=== PATIENT | male | born 1970 | race Caucasian/White ===

== ENCOUNTER 2019-06-05 07:59 | Inpatient (IN) | payer OTHER, SELFPAY ==
[2019-06-05] VITALS (10 sets, daily range): BP systolic 101–119; BP diastolic 59–71; PULSE 60–104; RESP 16–19; TEMP 36–36.9; O2SAT 93–100; BMI 29.2
--- NOTE | 2019-06-05 08:13 | RAD_ITS ---
STUDY: X-RAY CHEST REASON FOR EXAM: Male, 49 years old. RASH ALL OVER SKIN, HEADACHE TECHNIQUE: Single AP portable view of the chest. COMPARISON: None. FINDINGS: The lungs are clear and expanded. There is no demonstrated pleural abnormality. Normal size heart. Normal mediastinum and mary kate. Normal visualized pulmonary arteries. Normal visualized aortic arch and descending thoracic aorta. Normal visualized thoracic spine. Normal visualized ribs, clavicles, and shoulders. There is no demonstrated abnormality of the visualized soft tissue structures of the upper abdomen. RAD/Chest 1 View (Portable) IMPRESSION: Normal x-ray examination of the chest. Electronically Signed: Philip Carrion MD at 8:46 EST , Service support ,
--- NOTE | 2019-06-05 08:13 | CT_ITS ---
STUDY: CT BRAIN WITHOUT CONTRAST REASON FOR EXAM: Male, 49 years old. HEADACHE, ALLERGIC REACTION RADIATION DOSAGE (If Supplied By Facility): CTDIvol = ( 44.99 ) mGy, DLP = ( 880.47 ) mGycm TECHNIQUE: Transaxial CT imaging of the brain was performed without administration of intravenous contrast material. Individualized dose optimization techniques were used for this CT. COMPARISON: No relevant priors. FINDINGS: Normal soft tissue structures. Normal calvarium. Normal size ventricles and extra-axial spaces for the patient''s age. Normal white matter tracts of the cerebral hemispheres. Normal basal ganglia and thalami. Normal brainstem. Normal cerebellum. There is no intracranial hemorrhage. There are no findings of an acute ischemic infarction. Normal visualized paranasal sinuses. CT/Brain/Head without Contrast IMPRESSION: Normal unenhanced CT scan of the brain. Electronically Signed: Philip Carrion MD at 9:09 EST , Service support ,
[2019-06-05] MEDS: 0.9% Normal Saline 1,000 ML 1000 ML IV (08:37)
[2019-06-05] MEDS: Morphine 4 MG/ML Syringe IV (08:37)
[2019-06-05] MEDS: Ondansetron 4 MG/2 ML Vial IV (08:37)
[2019-06-05 08:51] LABS: Absolute Lymphocyte Count 0.39 X10^3/uL (0.83-4.51); Absolute Neutrophil Count 21.3 X10^3/uL (2.0-7.7); Basophil% 0.4 % (0-1); Eosinophil# 0.04 X10^3/uL; Eosinophils% 0.2 % (0-5); Hematocrit 40.9 % (40-54); Hemoglobin 14.3 g/dL (13.0-16.5); Lymphocyte # 0.39 X10^3/ul (4.0); Lymphocyte % 1.7 % (19-41); Mean Corpuscular Hgb 32.8 pg (27.0-32.0); Mean Corpuscular Volume 93.8 fL (80-94); Mean Platelet Vol. 9.9 fl (6.2-12.0); Monocyte# 0.65 X10^3/uL; Monocyte% 2.8 % (0-10); NRBC Flagged by Analyzer 0.1 % (0-5); Neutrophil # 21.27 X10^3/uL (2.7-7.7); Neutrophil % 91.1 % (47-70); POSITIVE DIFFERENTIAL YES; Platelet Count 283 K/mm3 (150-450); RBC Distribution Width CV 12.9 % (11.6-14.6); RBC Distribution Width SD 44.3 fl (35.1-43.9); Red Blood Count 4.36 M/mm3 (4.6-6.2); White Blood Count 23.3 K/mm3 (4.4-11.0)
[2019-06-05 08:53] LABS: Differential Indicated SCAN CRITERIA MET
[2019-06-05 09:00] LABS: ALB/GLOB Ratio 0.7 RATIO (0.9-2.4); AST(SGOT) 159 U/L (15-37); Alanine Aminotransfer ALT/SGPT 151 U/L (16-61); Albumin, Serum 2.9 g/dL (3.2-5.0); Alkaline Phosphatase 180 U/L (45-117); Anion Gap 7 (5-15); BUN 20 mg/dL (7-18); BUN/Creat Ratio 17.1 RATIO (10-20); Calcium,Total 8.9 mg/dL (8.5-10.1); Chloride 98 mmol/L (98-107); Creatinine, Serum 1.17 mg/dL (0.70-1.30); EST Glomerular Filtration Rate 70 mL/min (>60); Est Glom Filt Rate - Afr Amer 85 mL/min (>60); Estimated Creatinine Clearance 80.45 ml/min; Globulin 4.2 g/dL (2.2-4.2); Glucose 142 mg/dL (74-106); Lipase 168 U/L (73-393); Protein, Total 7.1 g/dL (6.4-8.2); Sodium Level 133 mmol/L (136-145)
[2019-06-05 09:06] LABS: Lactic Acid 1.6 mmol/L (0.4-1.9)
[2019-06-05] MEDS: HYDROmorphone 1 MG/ML Syringe IV (09:24)
[2019-06-05] MEDS: Ketorolac 15 MG/ML Vial IV (09:25)
--- NOTE | 2019-06-05 09:27 | HP.PCM_ITS ---
History of Present Illness Date of Admission: 06/05/19 Chief Complaint: fever, rash The patient is a 49 year old M with a past medical history of invasive metastatic melanoma recently diagnosed and hypertension. He was admitted through the ED on 06/05/2019 with a complaint of fever, headache and a diffuse rash. Patient was diagnosed with invasive melanoma in May 2016 after he presented with a lesion on his left calf. He had a wide excision and sentinel lymph node biopsy in June 2016. 1 sentinel lymph node was negative for malignancy them and surgical margins were negative. In April 2019, patient presented with chest nodule and had biopsy via bronchoscopy which was positive for metastatic melanoma. He had a PET scan for staging of melanoma which showed multiple intrathoracic, hepatic, pancreatic and mesenteric metastasis along with multiple soft tissue musculoskeletal lesions consistent with malignancy. He was started on immunotherapy treatment for melanoma on May 28 and was started on ipilimumab and nivolumab. He had complained of swelling and pain in his chest and due to suspicion for infection, he was started on Bactrim last week. 2 days after he received immunotherapy and was on Bactrim, he started having diarrhea and then developed a diffuse rash and fever. This was thought to be due to Bactrim and so Bactrim was stopped and he was started on prednisone taper. Patient states that yesterday, he accidentally took 2 tablets of Bactrim and subsequently developed a severe ache, fever and chills as well as a diffuse erythematous rash. He thought this was due to the Bactrim so he decided to come into the ED today. Of note, patient states he had an MRI of the brain on account of the headaches and he was informed by his oncologist last night that he had metastasis to the brain as well. In addition in the ED, he was afebrile and vitals were stable. He was saturating at 94% on room air. Labs showed sodium of 133, with bilirubin of 2.4, AST/ALT of 159/151 and ALP of 180 and wbc of 23.3; neutrophils were 91.1% and eosinophils only 0.2%. Brain CT showed normal unenhanced CT of the brain chest x-ray was also normal. He is admitted to be managed for diffuse rash and transaminitis likely due to ipilimumab toxicity/sepsis with unclear source of infection. [] Past Medical History Past Medical History (Chronic Problems): Chronic Problems Malignant melanoma (Chronic) Allergies sulfamethoxazole [From Bactrim] Allergy (Verified 06/05/19 08:00) Rash trimethoprim [From Bactrim] Allergy (Verified 06/05/19 08:00) Rash Home Medications: Ambulatory Orders Medication Instructions Recorded Lisinopril [Zestril] 20 mg PO DAILY 08/20/16 Amox/Clavulanate Tablet [Augmentin 1 tab PO BID 06/05/19 Tablet] Citalopram [Celexa] 20 mg PO DAILY 06/05/19 Lorazepam 1 mg PO QHS PRN 06/05/19 Opdivo IV 06/05/19 Prednisone 20 mg PO UD 06/05/19 Yervoy IV 06/05/19 Lives: Spouse/ Significant Other Smoking Status: Former smoker Alcohol: None Drugs: None - *Family History Maternal History Items: No pertinent history Paternal History Items: No pertinent history Review of Systems Constitutional: Reports: Chills, Fever, Malaise, Weakness, Fatigue. Denies: Anorexia Eyes: Denies: Blurred vision HEENT: Denies: Head Aches, Sinus Congestion, Sinus Drainage Cardiovascular: Denies: Chest Pain, Palpitations Respiratory: Denies: Cough, Shortness of Breath, Shortness of breath at rest, Shortness of breath upon exertion, Sputum production Gastrointestinal: Reports: Diarrhea. Denies: Abdominal Pain, Nausea, Vomiting Genitourinary: Denies: Dysuria Musculoskeletal: Denies: Joint Pain, Joint Tenderness Skin: Reports: Rash, Skin Changes. Denies: Dryness, Jaundice, Lesions, Pruritis, Wounds Neurological: Denies: Numbness, Tingling, Focal weakness Psychiatric: Denies: Anxiety, Depression, Homicidal Ideations, Suicidal Ideations Hematologic/ Lymphatic: Denies: Easy Bruising, Easy Bleeding VTE Information - Inpt Only VTE Present on Admission: No VTE Pharm Prophylaxis ordered?: Yes Patient Problems: Active and Suspected Problems Fever (Acute) possible drug-induced vs. infection Head ache (Acute) history of migraine 15 years ago Brain metastases (Acute) Drug rash (Acute) Bactrim versus immunotherapy related Abnormal liver function tests (Acute) Liver metastasis vs immunotherapy related - Physical Exam Vitals/I&O's: Vital Signs Temp Pulse Resp BP Pulse Ox 98.3 F 104 H 19 H 119/71 93 06/05/19 08:00 06/05/19 08:00 06/05/19 08:00 06/05/19 08:00 06/05/19 08:00 Oxygen Delivery Method Room Air Weight: 210 lb Body Mass Index (BMI) 29.2 General: Alert, Oriented x3, Cooperative, No apparent distress, Lethargic HEENT: Atraumatic, PERRLA, EOMI, Normocephalic, - - tinge of jaundice per sclera Oral: Dry Mucosa Neck: Supple, No JVD, Negative Carotid Bruits, Negative Hepatojugular Reflux, No Nodes Lungs: Clear to auscultation, Normal air movement, No rhonchi, No wheeze Cardiovascular: Regular rate, Regular Rhythm, Normal S1, Normal S2, No murmurs Abdomen: Bowel Sounds Present, Soft, Non Tender, Non-Distended, No Hepato- splenomegaly Extremities: No clubbing, No cyanosis, No edema, Capillary Refill Less than 3 Seconds Skin: - - diffuse, erythematous, papular rash all over body; face and neck is very erythematous; no pruritus. Musculoskeletal: No Tenderness to Palpation of Joints or Extremities Lymphatic: No Cervical, Supraclavicular, or Inguinal Adenopathy Neurological: Cranial nerves II-XII grossly intact Psych/Mental Status: Normal Affect, Appropriate, Alert and oriented to time, place, person, mood and affect Microbiology Past 72 Hours 06/05/19 08:33 Mucosa - Nasopharyngeal Influenza Types A,B Direct FA (DEYSI) - Final Laboratory Results 06/05/19 08:25: WBC 23.3 H, RBC 4.36 L, Hgb 14.3, Hct 40.9, MCV 93.8, MCH 32.8 H , MCHC 35.0, RDW Std Deviation 44.3 H, RDW Coeff of Tom 12.9, Plt Count 283, MPV 9.9, Immature Gran % (Auto) 3.800 H, Neut % (Auto) 91.1 H, Lymph % (Auto) 1.7 L , [place] % (Auto) 2.8, Eos % (Auto) 0.2, Baso % (Auto) 0.4, Absolute Neuts (auto) 21.3 H, Absolute Lymphs (auto) 0.39 L, Nucleated RBC % 0.1 06/05/19 08:25: Sodium 133 L, Potassium 4.0, Chloride 98, Carbon Dioxide 28.0, Anion Gap 7, BUN 20 H, Creatinine 1.17, Estim Creat Clear Calc 80.45, Est GFR (MDRD) Af Amer 85, Est GFR (MDRD) Non-Af 70, BUN/Creatinine Ratio 17.1, Glucose 142 H, Calcium 8.9, Total Bilirubin 2.40 H, AST 159 H, ALT 151 H, Alkaline Phosphatase 180 H, Total Protein 7.1, Albumin 2.9 L, Globulin 4.2, Albumin/Globulin Ratio 0.7 L, Lipase 168 06/05/19 08:25: Lactic Acid 1.[address] 06/05/19 08:13 IMPRESSION: Normal unenhanced CT scan of the brain. Electronically Signed: Philip Carrion MD at 9:09 EST , Service support , Chest X-Ray 06/05/19 08:13 IMPRESSION: Normal x-ray examination of the chest. Electronically Signed: Philip Carrion MD at 8:46 EST , Service support , Assessment/Plan All Active Problems Fever (Acute) Head ache (Acute) Brain metastases (Acute) Drug rash (Acute) Abnormal liver function tests (Acute) 49 y/o admitted with a complaint of fever, headache and rash. 1. Diffuse erythematous rash, due to probable ipilimumab toxicity * Patient has been receiving chemotherapy with ipilimumab for invasive metastatic melanoma. * His symptoms can all be explained by ipilimumab toxicity such as the rash, elevated liver enzymes and the diarrhea and vomiting he has had. * Family thinks that this may be due to Bactrim as he had a similar reaction to Bactrim a few days back but he was on chemotherapy at that time too. He was placed on prednisone taper. * Will hydrate with IV fluids. Start IV Solu-Medrol 40 mg every 8 hours. Per review of literature, family member toxicity, patient needs 0.5 to 1 mg/kg of prednisone daily so the current dosage fits within that. * Tylenol for pain. Will monitor closely. * I discussed case with Dr. Valentine she was patient's primary oncologist. Also discussed with Dr. Lainez who is covering for Dr. Crawford. * 2. Sepsis * Patient was tachycardic on admission and WBC is also elevated at 23. SIRS criteria is therefore 2/3. * leucocytosis could be due to steroids that he had been taking recently but in light of patient's immunosuppression, will manage for sepsis until ruled otherwise. * UA was positive for bacteria +1 both otherwise normal. Blood cultures and urine cultures ordered. * start patient on IV vancomycin and Zosyn. * * 3. Severe headache likely due to exacerbation of cluster headache * Patient had an MRI was informed yesterday by his oncologist that he had brain metastasis. Per my discussion with Dr. Pineda and Dr. Santana, he had a tiny foci of mental status and this is likely not the cause of his headache. * CT of the brain done during this admission was negative. Of note, patient now says he has a history of cluster headaches with the headaches were similar to this and he has assisted photophobia and blurring of vision. * Will under present of oxygen at 6 to 12 L/min via nonrebreather mask to help with cluster headache. Give sumatriptan and IV Toradol. Patient also on IV Solu-Medrol. * 4. Transaminitis * liver enzymes are elevated; Total bilirubin is 2.4, AST/ALT of 159/151 and ALP of 180. No previous records available in system. * Per discussion with Dr. Crawford, previous liver enzymes are WNL. * this is likely due to the immunomodulators he is receiving for chemotherapy namely ipilimumab. * lipase was not elevated at 168, so therefore unlikely to be pancreatitis * patient currently being hydrated and on IV solumedrol * will trend liver enzymes * liver USG done; report pending. * 5. Hypertension: on lisinopril. 6. Depression: On Celexa Prophylaxis: Lovenox Code status: DNRCCA * Patient counseled extensively about different types of CODE STATUS including full code, DNR CCA and DNR CCA. Patient elects to be full code. Total [id number] time 17 minutes. Code Visit Inpatient E&M: 09417 Init Hosp L3 Procedures: 68833 Advncd Care Plan 30 Min
--- NOTE | 2019-06-05 09:29 | ED.VISSUMM ---
- ER Visit Summary Date of Service: 06/05/19 Chief Complaint: [Rash, headache, fever] History of Present Illness: The patient is a 49 M [presents to the emergency department with symptoms that started last evening. Patient states that he accidentally took 2 Bactrim tablets last evening accidentally. Patient a week ago found out that he was allergic to Bactrim that he was being treated for an infection to a biopsy site in his right chest. Patient subsequently was switched over to Augmentin. Patient a week ago developed a fever and headache and rash similar to the symptoms of presentation today. Last evening patient developed a severe headache around midnight followed by vomiting that started around 1 AM. He is vomited multiple times. He denies any diarrhea. He denies urinary symptoms. He denies cough. Patient did have a temp up to 103 at home per his . Patient rates his headache a 10 out of 10. Patient currently being treated for melanoma that has metastasized to the liver, lungs, pancreas, and brain. Patient had an MRI of the brain last evening and was told he had metastasis to the brain. Patient currently being treated with biologicals by his oncologist Dr. Rinku Crawford. Patient denies any sick contacts. He is not receiving any type of chemotherapy. Patient does complain of photophobia with the headache. No history of migraines.] Physical Examination: [HEENT-PERRLA, EOMI. Cranial nerves II through XII grossly intact. TMs clear. Mucous membranes moist. No adenopathy. Cardiovascular-regular rate and rhythm without murmur or ectopy Lungs-clear to auscultation, chest wall stable without crepitus or subcu emphysema Abdomen-normoactive bowel sounds, soft, nontender, no rebound or rigidity, no peritoneal signs. Neuro [id number]-nose and heel farah testing within normal limits, negative Romberg, negative No fundi benign. Extremities-intact ?4, normal range of motion, normal pulses, atraumatic] Test Results: [CT scan of the brain without contrast was normal. Chest x-ray was unremarkable. CBC with differential obtained showed an elevated white blood cell count of 23,000, hemoglobin 14, hematocrit 41, platelets 283. Chemistries unremarkable. LFTs did show elevation in total bilirubin of 2.4, alk phos 180, ALT 156, AST 459. Lipase was 168. Influenza screen was negative. Lactate was 1.6.] Emergency Department Course and Treatment: [ IV established. Patient was given a liter normal same fluid bolus. Patient was medicated 4 mg of morphine and 4 mg of Zofran which he had minimal improvement of his headache with.] Patient was remedicated with Toradol 15 mg IV and Dilaudid 1 mg IV. Treatment Plan: [This was discussed with hospitalist who will evaluate patient for admission. Blood cultures were sent. Urinalysis results pending.] Disposition: [Admit] Impression: [Allergic drug reaction Intractable headache Fever-etiology uncertain] This note was generated with [employer] dictation software. It may contain incorrect words, spelling, and punctuation that were not noted in review of the chart prior to signing ED Disposition - Plan for ED Patient: Referrals: Wilfredo Ellis MD [Primary Care Provider] -
[2019-06-05 09:33] LABS: Differential Comment SCANNED
[2019-06-05 09:33] LABS: Mucous, Urine 0 SEEN /hpf (<or=2+); Red Blood Cells-Urine 0 SEEN /hpf (0-5); Squamous Epithelial Cells - UA 0 SEEN /hpf (0-5); White Blood Cells 0 SEEN /hpf (0-5)
[2019-06-05 09:53] LABS: Color, Urine Yellow (Yellow); Glucose, Dipstick Normal (Normal); Ketone-Dipstick 5 mg/dl (Negative); Leukocyte Esterase-Dipstick 25 /ul (Negative); Nitrite-Dipstick Positive (Negative); Occult Blood-Urine 10 /ul (Negative); Protein-Dipstick 30 mg/dl (Negative); Specific Gravity, Urine 1.015 (1.002-1.030); Urine Clarity Clear (Clear); Urine Urobilinogen 4 mg/dl (Normal)
[2019-06-05 09:54] LABS: Urine Bilirubin Dipstick 1 mg/dL (Negative)
[2019-06-05 09:57] LABS: Bacteria 1+ /hpf (None Seen)
--- NOTE | 2019-06-05 11:08 | US_ITS ---
STUDY: ABDOMINAL ULTRASOUND - RIGHT UPPER QUADRANT REASON FOR VISIT: Male, 49 years old JAUNDICE, PANCREATIC METS, ABD PAIN TECHNIQUE: Ultrasound evaluation of the right upper quadrant was performed with real-time and static hendrickson-scale imaging. TECHNICAL QUALITY: Adequate. COMPARISON: None. FINDINGS: Liver: The liver measures 15.3 cm. There is a heterogeneous echogenicity of the liver. The bile ducts are within normal limits. There is hepatic color flow. The direction of portal flow is hepatopetal. There is no demonstrated mass lesion, two simple cysts, larger measures 2.2 x 1.7 x 2.1 cm Gallbladder: Normal distended gallbladder. The gallbladder wall measures 2 mm. There is a negative sonographic Ingram''s sign. There is no pericholecystic fluid. There are gallbladder polyps. There is ring down artifact in the anterior wall of the gallbladder suggestive of adenomyomatosis Common Bile Duct (C.B.D.): The common bile duct measures 5 mm. Pancreas: The visualized pancreas is sonographically normal Right Kidney: Normal size of the right kidney. The right kidney measures 10.6 x 7.3 x 6.5 cm. Normal renal cortex. The right cortex measures 2.2 cm. There is no demonstrated renal mass or cyst. There is no right hydronephrosis. US/Liver IMPRESSION: Heterogeneous echotexture within the liver, there are 2 hepatic cysts, no suspicious solid lesion Gallbladder polyp and ring down artifact from the anterior wall of the gallbladder suggestive of adenomyomatosis. No sonographic evidence of cholecystitis Electronically Signed: Philip Carrion MD at 16:44 EST , Service support ,
--- NOTE | 2019-06-05 11:16 | PCM.CONS.GEN ---
Problem List (1) Fever Status: Acute Qualifiers: Fever type: unspecified Qualified Code(s): R50.9 - Fever, unspecified Comment: possible drug-induced vs. infection (2) Head ache Status: Acute Qualifiers: Headache type: cluster Headache chronicity pattern: episodic headache Intractability: intractable Qualified Code(s): G44.011 - Episodic cluster headache, intractable Comment: history of migraine 15 years ago (3) Malignant melanoma Status: Chronic Qualifiers: Melanoma location: unspecified site Qualified Code(s): C43.9 - Malignant melanoma of skin, unspecified (4) Brain metastases Status: Acute (5) Drug rash Status: Acute Comment: Bactrim versus immunotherapy related (6) Abnormal liver function tests Status: Acute Comment: Liver metastasis vs immunotherapy related Reason for Consult Date of Consultation: 06/05/19 Reason for Consultation: Fever and rash and severe headaches History of Present Illness: The patient is a 49 year old M [stage IV malignant melanoma] presented with fever, diffuse rash and severe headaches. Patient had biopsy invasive malignant melanoma left calf May 2016. Initially demonstrate Santos level IV mitotic with mitotic rate and microsatellite lymphovascular invasion indeterminate. Patient does show regression of the tumor 75% of the lesion. He underwent wide excision and sentinel lymph node groin biopsy in June 2016. Fidel revealed one sentinel lymph node negative for malignancy. Surgical margin was negative. Patient present with a chest nodule in April which was biopsy via bronchoscopy on 05/25/19. It was positive for metastatic melanoma. He also had he also had a biopsy of a skin nodule which was negative. Patient had a PET scan for staging of melanoma which show multiple interthoracic, hepatic pancreatic and mesenteric metastatic deposit along with multiple soft tissue muscular skeletal lesions consistent with malignancy. He started immunotherapy treatment for melanoma May 28, 2019. Because of swelling and pain in his chest area and possibly infection, he was started on Bactrim last week. Two days after immunotherapy: Ipiilimumab / Nivolumab, he developed diarrhea couple days which resolved. He then developed diffuse rash and fever. Bactrim was discontinued and he was started on prednisone 60 mg taper. Accidentally took Bactrim last night and his prednisone dose currently at 40mg. He presented emergency room with severe headaches diffuse rash and fever. Complaint of congestion of the chest with severe headaches. No focal neurological symptom or cranial nerve palsy. He still have right upper upper abdomen pain, but his lipase was normal on admission. Liver function show significant increase in SGOT/SGOT and bilirubin. He has nausea but no vomiting. No cough shortness of breath. + complaint of severe cluster headaches & photophobia. Past Medical History Past Medical History (Chronic Problems): Chronic Problems Malignant melanoma (Chronic) Allergies sulfamethoxazole [From Bactrim] Allergy (Verified 06/05/19 08:00) Rash trimethoprim [From Bactrim] Allergy (Verified 06/05/19 08:00) Rash Home Medications: Ambulatory Orders Medication Instructions Recorded Lisinopril [Zestril] 20 mg PO DAILY 08/20/16 Amox/Clavulanate Tablet [Augmentin 1 tab PO BID 06/05/19 Tablet] Citalopram [Celexa] 20 mg PO DAILY 06/05/19 Lorazepam 1 mg PO QHS PRN 06/05/19 Opdivo IV 06/05/19 Prednisone 20 mg PO UD 06/05/19 Yervoy IV 06/05/19 Surgical History: - - Wide excision of melanoma of the left lower extremity and sentinel lymph node biopsy Lives: Spouse/ Significant Other Smoking Status: Former smoker Alcohol: None Drugs: None Review of Systems Constitutional: Reports: Malaise Gastrointestinal: Reports: Abdominal Pain - Upper abdomen Skin: Reports: Jaundice, Rash Patient Problems: Active and Suspected Problems Fever (Acute) possible drug-induced vs. infection Head ache (Acute) history of migraine 15 years ago Brain metastases (Acute) Drug rash (Acute) Bactrim versus immunotherapy related Abnormal liver function tests (Acute) Liver metastasis vs immunotherapy related - Physical Exam Vitals/I&O's: Vital Signs Temp Pulse Resp BP Pulse Ox 96.8 F L 85 18 101/59 L 94 06/05/19 10:34 06/05/19 10:34 06/05/19 10:34 06/05/19 10:34 06/05/19 10:34 Oxygen Delivery Method Room Air Weight: 209 lb 3.499 oz Body Mass Index (BMI) 29.2 Intake and Output for Last 24 Hours 06/03/19 06/04/19 06/05/19 23:59 23:59 23:59 Intake Total 1000 / 1000 Balance 1000 / 1000 General: Alert, Oriented x3 HEENT: Atraumatic, PERRLA, EOMI, Normocephalic Oral: Moist Mucosa, No Gingival or Mucosal Lesions/ Ulcerations Neck: Supple, No JVD, Negative Carotid Bruits, No Nodes, No Nuchal Rigidity, Trachea Midline Lungs: Clear to auscultation, Normal air movement, No rhonchi, No wheeze, No rales Cardiovascular: Regular rate, Regular Rhythm, Normal S1, Normal S2, No murmurs Abdomen: Bowel Sounds Present, Soft, No Hepato-splenomegaly - Tenderness in the right upper quadrant and upper abdomen. Extremities: No clubbing, No cyanosis, No edema Skin: Rash Present - Generalized consistent with drug rash Musculoskeletal: No Tenderness to Palpation of Joints or Extremities, No Muscle Wasting Lymphatic: No Cervical, Supraclavicular, or Inguinal Adenopathy Neurological: Cranial nerves II-XII grossly intact, Neuro grossly intact Psych/Mental Status: Appropriate Comment: Normal unenhanced CT scan of the brain. Microbiology Past 72 Hours 06/05/19 08:33 Mucosa - Nasopharyngeal Influenza Types A,B Direct FA (DEYSI) - Final Laboratory Results 06/05/19 08:25: WBC 23.3 H, RBC 4.36 L, Hgb 14.3, Hct 40.9, MCV 93.8, MCH 32.8 H, MCHC 35.0, RDW Std Deviation 44.3 H, RDW Coeff of Tom 12.9, Plt Count 283, MPV 9.9, Immature Gran % (Auto) 3.800 H, Neut % (Auto) 91.1 H, Lymph % (Auto) 1.7 L, [place] % (Auto) 2.8, Eos % (Auto) 0.2, Baso % (Auto) 0.4, Absolute Neuts (auto) 21.3 H, Absolute Lymphs (auto) 0.39 L, Nucleated RBC % 0.1, Differential Comment SCANNED 06/05/19 08:25: Sodium 133 L, Potassium 4.0, Chloride 98, Carbon Dioxide 28.0, Anion Gap 7, BUN 20 H, Creatinine 1.17, Estim Creat Clear Calc 80.45, Est GFR (MDRD) Af Amer 85, Est GFR (MDRD) Non-Af 70, BUN/Creatinine Ratio 17.1, Glucose 142 H, Calcium 8.9, Total Bilirubin 2.40 H, AST 159 H, ALT 151 H, Alkaline Phosphatase 180 H, Total Protein 7.1, Albumin 2.9 L, Globulin 4.2, Albumin/Globulin Ratio 0.7 L, Lipase 168 06/05/19 08:25: Lactic Acid 1.6 06/05/19 09:15: Urine Color Yellow, Urine Clarity Clear, Urine pH 6.0, Ur Specific [place] 1.015, Urine Protein 30 H, Urine Glucose (UA) Normal, Urine Ketones 5 H, Urine Occult Blood 10 H, Urine Nitrite Positive H, Urine Bilirubin 1 H, Urine Urobilinogen 4 H, Ur Leukocyte Esterase 25 H, Urine RBC 0 SEEN, Urine WBC 0 SEEN, Ur Squamous Epith Cells 0 SEEN, Urine Bacteria 1+, Urine Mucus 0 SEEN Current Medications Acetaminophen (Tylenol) 650 mg PO Q6H PRN PRN PRN Reason: Pain Score 1-3/Temp > 100.7 F Citalopram Hydrobromide (Celexa) 20 mg PO DAILY [facility] Dextrose (D50w Syringe) 0 gm IV X1 PRN; Protocol PRN Reason: Hypoglycemia Enoxaparin Sodium (Lovenox) 40 mg SC DAILY [facility] Glucagon () 1 mg IM .X1 PRN PRN Reason: Hypoglycemia Sodium Chloride () 250 mls @ 15 mls/hr IV .[id number] PRN PRN Reason: Saline Flush Sodium Chloride () 250 mls @ 15 mls/hr IV .[id number] PRN PRN Reason: Additional IVPB Infusion Sodium Chloride () 1,000 mls @ 150 mls/hr IV .Q6H40M [facility] Stop: 06/06/19 07:04 Piperacillin Sod/Tazobactam (Sod 3.375 gm/ Sodium Chloride) 50 mls @ 12.5 mls/hr IV Q8 [facility] Vancomycin IV Pharmacy to Dose (1 ea/ Sodium Chloride) 500 mls @ 250 mls/hr IV X1 PRN; Protocol PRN Reason: Rx to Dose Lisinopril (Zestril) 20 mg PO DAILY [facility] Lorazepam (Ativan) 1 mg PO QHS PRN PRN Reason: SLEEP Methylprednisolone (Solu-Medrol) 40 mg IV Q8 [facility] Ondansetron HCl (Zofran) 4 mg IV Q8H PRN PRN PRN Reason: NAUSEA/VOMITING Sodium Chloride () 10 - 40 ml IV UD PRN PRN Reason: SALINE FLUSH Sumatriptan Succinate (Imitrex) 6 mg SC X1 ONE Stop: 06/05/19 11:31 Assessment/Plan All Active Problems Fever (Acute) Head ache (Acute) Brain metastases (Acute) Drug rash (Acute) Abnormal liver function tests (Acute) This is a 49-year-old gentleman with Stage 4 malignant melanoma with pain, lymph node, soft tissue, hepatic, pancreatic, mesenteric metastases. Presented initially after immunotherapy with diarrhea, fever, rash and now jaundice. This represent versus reaction to immunotherapy versus infection versus Bactrim allergy. 1) Fever Assessment: - etiology could be consistent with infection, or drug fever Plan: -Blood cultures; respiratory panel; MRSA screen. -Continue broad-spectrum antibiotics Zosyn until final blood culture results 2) cluster headaches Assessment: -Possibly exacerbated by fever and immunotherapy -MRI brain showed brain metastasis without significant edema; no evidence of leptomeningeal disease Plan: - Agree with current management for headaches and pain - Zofran or Compazine as needed for nausea 3) rash Assessment: -Typical drug rash either from Bactrim or immunotherapy. Plan: -Continue Solu-Medrol 40mg IV every 8 hours 4) abnormal liver functions Assessment: -History of liver mets but sudden increase may be secondary to immunotherapy -Recent history of pancreatitis; rule out cholecystitis and gallstone. Plan: -Ultra Sound right upper quadrant today. -Continue Solu-Medrol -Monitor LFT and lipase 5) malignant melanoma with STATEMENT PROCESSOR metastasis Assessment: -Neurologically stable, no evidence of leptomeningeal disease Plan: -Completed first rounds of immunotherapy with significant toxicity. -Continue Solu-Medrol and neurochecks -Refer to [facility] next week for gamma knife therapy for brain metastasis. cc: Dr. Rinku Crawford; Dr. Isa Cole; DR. Wilfredo Ellis Code Visit Office Visits / Consults: [id number] IP Consult L5
[2019-06-05] MEDS: 0.9% Normal Saline 1,000 ML 150 ML IV ×2 (12:54→21:18)
[2019-06-05] MEDS: SUMAtriptan 6 MG/0.5 ML Vial SC (12:54)
[2019-06-05] MEDS: 0.9% Saline Lock 10 ML Syringe IV ×2 (13:07→20:52)
--- NOTE | 2019-06-05 13:40 | PCM.RX.CS ---
Consult Pharmacy has been consulted to manage selected antiobiotic: Vancomycin Type of Consult: New start Labs: Sodium 133 mmol/L (136-145) L 06/05/19 08:25 Potassium 4.0 mmol/L (3.5-5.1) 06/05/19 08:25 Chloride 98 mmol/L (98-107) 06/05/19 08:25 Carbon Dioxide 28.0 mmol/L (21.0-32.0) 06/05/19 08:25 Anion Gap 7 (5-15) 06/05/19 08:25 BUN 20 mg/dL (7-18) H 06/05/19 08:25 Creatinine 1.17 mg/dL (0.70-1.30) 06/05/19 08:25 Est GFR (MDRD) Af Amer 85 mL/min (>60) 06/05/19 08:25 Est GFR (MDRD) Non-Af 70 mL/min (>60) 06/05/19 08:25 BUN/Creatinine Ratio 17.1 RATIO (10-20) 06/05/19 08:25 Glucose 142 mg/dL (74-106) H 06/05/19 08:25 Microbiology: Microbiology 06/05/19 08:33 Mucosa - Nasopharyngeal Influenza Types A,B Direct FA (DEYSI) - Final Weight used for dosin kg Estimated Creatinine Clearance: 80 mL/min Goal Trough: 15-20 mcg/mL Pharmacy Plan for Drug Dosing: Vanc 2000mg IV x1 followed by 2000mg IV q12h with trough prior to 4th dose. Pharmacy Service will continue to monitor and adjust dosing as required. Follow-Up Labs: Trough Vancomycin - 06/07 @ 0030
[2019-06-05] MEDS: Ketorolac 30 MG/ML Syringe IV ×2 (14:04→20:51)
[2019-06-05] MEDS: Acetaminophen 325 MG Tablet 650 MG PO (17:53)
[2019-06-05 20:00] LABS: M R Staph aureus DNA By PCR Negative (Negative); Probe Check PASS; Specimen Processing Control PASS; Staph aureus DNA By PCR NEGATIVE (Negative)
[2019-06-05] MEDS: Citalopram 20 MG Tablet PO (21:04)
[2019-06-05] MEDS: LORazepam 1 MG Tablet PO (21:05)
[2019-06-06] VITALS (12 sets, daily range): BP systolic 101–140; BP diastolic 69–76; PULSE 63–149; RESP 16–18; TEMP 36.3–36.6; O2SAT 94–100
[2019-06-06] MEDS: Acetaminophen 325 MG Tablet 650 MG PO (03:01)
[2019-06-06] MEDS: 0.9% Normal Saline 1,000 ML 150 ML IV (05:22)
[2019-06-06] MEDS: 0.9% Saline Lock 10 ML Syringe IV (05:23)
[2019-06-06 07:02] LABS: Absolute Lymphocyte Count 0.91 X10^3/uL (0.83-4.51); Absolute Neutrophil Count 15.8 X10^3/uL (2.0-7.7); Basophil# 0.06 X10^3/uL; Basophil% 0.3 % (0-1); Eosinophil# 0.04 X10^3/uL; Eosinophils% 0.2 % (0-5); Hematocrit 36.3 % (40-54); Lymphocyte # 0.91 X10^3/ul (4.0); Mean Corp Hgb Conc 33.1 g/dL (32-36); Mean Corpuscular Hgb 31.5 pg (27.0-32.0); Mean Corpuscular Volume 95.3 fL (80-94); Mean Platelet Vol. 10.1 fl (6.2-12.0); Monocyte# 0.67 X10^3/uL; Monocyte% 3.7 % (0-10); NRBC Flagged by Analyzer 0 % (0-5); Neutrophil # 15.77 X10^3/uL (2.7-7.7); Neutrophil % 87.3 % (47-70); Platelet Count 241 K/mm3 (150-450); RBC Distribution Width CV 13.3 % (11.6-14.6); RBC Distribution Width SD 46.5 fl (35.1-43.9); Red Blood Count 3.81 M/mm3 (4.6-6.2); White Blood Count 18.1 K/mm3 (4.4-11.0)
[2019-06-06 07:41] LABS: ALB/GLOB Ratio 0.6 RATIO (0.9-2.4); AST(SGOT) 27 U/L (15-37); Alanine Aminotransfer ALT/SGPT 84 U/L (16-61); Albumin, Serum 2.1 g/dL (3.2-5.0); Alkaline Phosphatase 112 U/L (45-117); Anion Gap 5 (5-15); BUN 18 mg/dL (7-18); BUN/Creat Ratio 23.5 RATIO (10-20); Calcium,Total 7.8 mg/dL (8.5-10.1); Chloride 104 mmol/L (98-107); Creatinine, Serum 0.76 mg/dL (0.70-1.30); EST Glomerular Filtration Rate 115 mL/min (>60); Est Glom Filt Rate - Afr Amer 139 mL/min (>60); Estimated Creatinine Clearance 123.85 ml/min; Globulin 3.4 g/dL (2.2-4.2); Glucose 134 mg/dL (74-106); Potassium 4.4 mmol/L (3.5-5.1); Protein, Total 5.5 g/dL (6.4-8.2); Sodium Level 135 mmol/L (136-145)
[2019-06-06] MEDS: Lisinopril 20 MG Tablet PO (07:44)
[2019-06-06] MEDS: Enoxaparin 40 MG/0.4 ML Syringe SC (07:44)
--- NOTE | 2019-06-06 08:56 | PCM.PN.BLA ---
Progress Note Oncology progress note: Patient is feeling better overall. Rash improving. Still have moderate headaches. No nausea or vomiting. Respiratory panel and flu was negative. Blood culture pending. Afebrile since admission. Liver function also improved with Solu-Medrol. Vital Signs - 24 hr Temp Pulse Resp BP Pulse Ox 06/06/19 08:17 70 06/06/19 08:04 94 06/06/19 07:57 97.5 F L 63 16 120/73 100 06/06/19 04:13 76 06/06/19 03:02 97.3 F L 74 18 101/69 100 06/05/19 23:49 63 06/05/19 21:02 97.5 F L 60 18 106/62 100 06/05/19 19:59 73 06/05/19 17:57 97.9 F 70 18 104/63 100 06/05/19 15:56 80 06/05/19 14:30 83 06/05/19 13:29 95 06/05/19 10:34 96.8 F L 85 18 101/59 L 94 06/05/19 09:49 98.4 F 84 16 112/66 93 Laboratory Tests 06/06/19 06/06/19 06/05/19 Range/Units 05:50 05:50 18:18 WBC 18.1 H (4.4-11.0) K/mm3 RBC 3.81 L (4.6-6.2) M/mm3 Hgb 12.0 L (13.0-16.5) g/dL Hct 36.3 L (40-54) % MCV 95.3 H (80-94) fL MCH 31.5 (27.0-32.0) pg MCHC 33.1 (32-36) g/dL RDW Std Deviation 46.5 H (35.1-43.9) fl RDW Coeff of Tom 13.3 (11.6-14.6) % Plt Count 241 (150-450) K/mm3 MPV 10.1 (6.2-12.0) fl Immature Gran % (Auto) 3.500 H (0.0-0.9) % Neut % (Auto) 87.3 H (47-70) % Lymph % (Auto) 5.0 L (19-41) % [place] % (Auto) 3.7 (0-10) % Eos % (Auto) 0.2 (0-5) % Baso % (Auto) 0.3 (0-1) % Absolute Neuts (auto) 15.8 H (2.0-7.7) X10^3/uL Absolute Lymphs (auto) 0.91 (0.83-4.51) X10^3/uL Nucleated RBC % 0 (0-5) % Differential Comment Sodium 135 L (136-145) mmol/L Potassium 4.4 (3.5-5.1) mmol/L Chloride 104 (98-107) mmol/L Carbon Dioxide 26.0 (21.0-32.0) mmol/L Anion Gap 5 (5-15) BUN 18 (7-18) mg/dL Creatinine 0.76 (0.70-1.30) mg/dL Estim Creat Clear Calc 123.85 ml/min Est GFR (MDRD) Af Amer 139 (>60) mL/min Est GFR (MDRD) Non-Af 115 (>60) mL/min BUN/Creatinine Ratio 23.5 H (10-20) RATIO Glucose 134 H (74-106) mg/dL Lactic Acid (0.4-1.9) mmol/L Calcium 7.8 L (8.5-10.1) mg/dL Total Bilirubin 0.80 (0.20-1.00) mg/dL AST 27 (15-37) U/L ALT 84 H (16-61) U/L Alkaline Phosphatase 112 (45-117) U/L Total Protein 5.5 L (6.4-8.2) g/dL Albumin 2.1 L (3.2-5.0) g/dL Globulin 3.4 (2.2-4.2) g/dL Albumin/Globulin Ratio 0.6 L (0.9-2.4) RATIO Lipase (73-393) U/L Urine Color (Yellow) Urine Clarity (Clear) Urine pH (5.0 - 8.0) Ur Specific [place] (1.002-1.030) Urine Protein (Negative) mg/dl Urine Glucose (UA) (Normal) mg/dl Urine Ketones (Negative) mg/dl Urine Occult Blood (Negative) /ul Urine Nitrite (Negative) Urine Bilirubin (Negative) mg/dL Urine Urobilinogen (Normal) mg/dl Ur Leukocyte Esterase (Negative) /ul Urine RBC (0-5) /hpf Urine WBC (0-5) /hpf Ur Squamous Epith Cells (0-5) /hpf Urine Bacteria (None Seen) /hpf Urine Mucus (<or=2+) /hpf S.aureus Protein A PCR NEGATIVE (Negative) MRSA (PCR) Negative (Negative) 06/05/19 06/05/19 06/05/19 Range/Units 09:15 08:25 08:25 WBC (4.4-11.0) K/mm3 RBC (4.6-6.2) M/mm3 Hgb (13.0-16.5) g/dL Hct (40-54) % MCV (80-94) fL MCH (27.0-32.0) pg MCHC (32-36) g/dL RDW Std Deviation (35.1-43.9) fl RDW Coeff of Tom (11.6-14.6) % Plt Count (150-450) K/mm3 MPV (6.2-12.0) fl Immature Gran % (Auto) (0.0-0.9) % Neut % (Auto) (47-70) % Lymph % (Auto) (19-41) % [place] % (Auto) (0-10) % Eos % (Auto) (0-5) % Baso % (Auto) (0-1) % Absolute Neuts (auto) (2.0-7.7) X10^3/uL Absolute Lymphs (auto) (0.83-4.51) X10^3/uL Nucleated RBC % (0-5) % Differential Comment Sodium 133 L (136-145) mmol/L Potassium 4.0 (3.5-5.1) mmol/L Chloride 98 (98-107) mmol/L Carbon Dioxide 28.0 (21.0-32.0) mmol/L Anion Gap 7 (5-15) BUN 20 H (7-18) mg/dL Creatinine 1.17 (0.70-1.30) mg/dL Estim Creat Clear Calc 80.45 ml/min Est GFR (MDRD) Af Amer 85 (>60) mL/min Est GFR (MDRD) Non-Af 70 (>60) mL/min BUN/Creatinine Ratio 17.1 (10-20) RATIO Glucose 142 H (74-106) mg/dL Lactic Acid 1.6 (0.4-1.9) mmol/L Calcium 8.9 (8.5-10.1) mg/dL Total Bilirubin 2.40 H (0.20-1.00) mg/dL AST 159 H (15-37) U/L ALT 151 H (16-61) U/L Alkaline Phosphatase 180 H (45-117) U/L Total Protein 7.1 (6.4-8.2) g/dL Albumin 2.9 L (3.2-5.0) g/dL Globulin 4.2 (2.2-4.2) g/dL Albumin/Globulin Ratio 0.7 L (0.9-2.4) RATIO Lipase 168 (73-393) U/L Urine Color Yellow (Yellow) Urine Clarity Clear (Clear) Urine pH 6.0 (5.0 - 8.0) Ur Specific [place] 1.015 (1.002-1.030) Urine Protein 30 H (Negative) mg/dl Urine Glucose (UA) Normal (Normal) mg/dl Urine Ketones 5 H (Negative) mg/dl Urine Occult Blood 10 H (Negative) /ul Urine Nitrite Positive H (Negative) Urine Bilirubin 1 H (Negative) mg/dL Urine Urobilinogen 4 H (Normal) mg/dl Ur Leukocyte Esterase 25 H (Negative) /ul Urine RBC 0 SEEN (0-5) /hpf Urine WBC 0 SEEN (0-5) /hpf Ur Squamous Epith Cells 0 SEEN (0-5) /hpf Urine Bacteria 1+ (None Seen) /hpf Urine Mucus 0 SEEN (<or=2+) /hpf S.aureus Protein A PCR (Negative) MRSA (PCR) (Negative) 06/05/19 Range/Units 08:25 WBC 23.3 H (4.4-11.0) K/mm3 RBC 4.36 L (4.6-6.2) M/mm3 Hgb 14.3 (13.0-16.5) g/dL Hct 40.9 (40-54) % MCV 93.8 (80-94) fL MCH 32.8 H (27.0-32.0) pg MCHC 35.0 (32-36) g/dL RDW Std Deviation 44.3 H (35.1-43.9) fl RDW Coeff of Tom 12.9 (11.6-14.6) % Plt Count 283 (150-450) K/mm3 MPV 9.9 (6.2-12.0) fl Immature Gran % (Auto) 3.800 H (0.0-0.9) % Neut % (Auto) 91.1 H (47-70) % Lymph % (Auto) 1.7 L (19-41) % [place] % (Auto) 2.8 (0-10) % Eos % (Auto) 0.2 (0-5) % Baso % (Auto) 0.4 (0-1) % Absolute Neuts (auto) 21.3 H (2.0-7.7) X10^3/uL Absolute Lymphs (auto) 0.39 L (0.83-4.51) X10^3/uL Nucleated RBC % 0.1 (0-5) % Differential Comment SCANNED Sodium (136-145) mmol/L Potassium (3.5-5.1) mmol/L Chloride (98-107) mmol/L Carbon Dioxide (21.0-32.0) mmol/L Anion Gap (5-15) BUN (7-18) mg/dL Creatinine (0.70-1.30) mg/dL Estim Creat Clear Calc ml/min Est GFR (MDRD) Af Amer (>60) mL/min Est GFR (MDRD) Non-Af (>60) mL/min BUN/Creatinine Ratio (10-20) RATIO Glucose (74-106) mg/dL Lactic Acid (0.4-1.9) mmol/L Calcium (8.5-10.1) mg/dL Total Bilirubin (0.20-1.00) mg/dL AST (15-37) U/L ALT (16-61) U/L Alkaline Phosphatase (45-117) U/L Total Protein (6.4-8.2) g/dL Albumin (3.2-5.0) g/dL Globulin (2.2-4.2) g/dL Albumin/Globulin Ratio (0.9-2.4) RATIO Lipase (73-393) U/L Urine Color (Yellow) Urine Clarity (Clear) Urine pH (5.0 - 8.0) Ur Specific [place] (1.002-1.030) Urine Protein (Negative) mg/dl Urine Glucose (UA) (Normal) mg/dl Urine Ketones (Negative) mg/dl Urine Occult Blood (Negative) /ul Urine Nitrite (Negative) Urine Bilirubin (Negative) mg/dL Urine Urobilinogen (Normal) mg/dl Ur Leukocyte Esterase (Negative) /ul Urine RBC (0-5) /hpf Urine WBC (0-5) /hpf Ur Squamous Epith Cells (0-5) /hpf Urine Bacteria (None Seen) /hpf Urine Mucus (<or=2+) /hpf S.aureus Protein A PCR (Negative) MRSA (PCR) (Negative) EXAM: No focal neurological deficit SKIN: Rash improving. US right upper quadrant: IMPRESSION: Heterogeneous echotexture within the liver, there are 2 hepatic cysts, no suspicious solid lesion Gallbladder polyp and ring down artifact from the anterior wall of the gallbladder suggestive of adenomyomatosis. No sonographic evidence of cholecystitis ASSESSMENT: Consideration of symptoms related to immunotherapy treatment including fever, rash, abnormal liver function and diarrhea. - improving on Solu-Medrol. 1) Fever Assessment: - etiology could be consistent with infection, or drug fever Plan: -Blood cultures pending; respiratory panel; MRSA screen were negative -Discontinue antibiotics today if blood culture is negative. 2) cluster headaches Assessment: -Possibly exacerbated by fever and immunotherapy -MRI brain showed brain metastasis without significant edema; no evidence of leptomeningeal disease Plan: - Agree with current management for headaches - Zofran or Compazine as needed for nausea 3) rash Assessment: -Typical drug rash either from Bactrim or immunotherapy. Plan: -Continue Solu-Medrol 40mg IV every 8 hours -Eucerin topical twice daily as indicated. 4) abnormal liver functions Assessment: -History of liver mets but sudden increase may be secondary to immunotherapy -Improving Plan: -Continue Solu-Medrol -Monitor LFT and lipase 5) malignant melanoma with GARMENT FINISHER metastasis Assessment: -Neurologically stable, no evidence of leptomeningeal disease Plan: -Completed first rounds of immunotherapy with significant toxicity. -Continue Solu-Medrol and neurochecks -Refer to [facility] next week for gamma knife therapy for brain metastasis. cc: Dr. Rinku Crawford; Dr. Isa Cole; DR. Wilfredo Ellis STROKE Vital Signs/Narrative: Vital Signs Temp Pulse Resp BP Pulse Ox 06/06/19 08:17 70 06/06/19 08:04 94 06/06/19 07:57 97.5 F L 63 16 120/73 100
[2019-06-06] MEDS: Ketorolac 30 MG/ML Syringe IV ×3 (09:53→20:29)
[2019-06-06] MEDS: SUMAtriptan 6 MG/0.5 ML Vial SC (10:15)
--- NOTE | 2019-06-06 13:52 | PCM.PN.HOSP ---
Patient Problems: Active and Suspected Problems Fever (Acute) possible drug-induced vs. infection Head ache (Acute) history of migraine 15 years ago Brain metastases (Acute) Drug rash (Acute) Bactrim versus immunotherapy related Abnormal liver function tests (Acute) Liver metastasis vs immunotherapy related Subjective: Patient seen and examined. He looks much better today. Diffuse rash and erythema improved markedly. Headache is also improved with. He denies any fever chills, nausea vomiting or abdominal pain. He denies any diarrhea review of systems otherwise negative. Labs and vitals reviewed. Vitals are stable. WBC is down to 18.1 and hemoglobin is 12. Closer to 41. Liver enzymes have also improved with AST down to 27 from 159 and ALT down to 84. ALP is also down to 113. Vitals/I&O's: Vital Signs Temp Pulse Resp BP Pulse Ox 97.7 F L 65 16 110/75 97 06/06/19 11:33 06/06/19 11:36 06/06/19 11:33 06/06/19 11:33 06/06/19 11:33 Oxygen Flow Rate (L/min) 6 Oxygen Delivery Method Room Air Weight: 209 lb 3.499 oz Body Mass Index (BMI) 29.2 Intake and Output for Last 24 Hours 06/04/19 06/05/19 06/06/19 23:59 23:59 23:59 Intake Total 3038.0 / 3388.0 3491.75 / 3491.75 Output Total 300 / 475 425 / 425 Balance 2738.0 / 2913.0 3066.75 / 3066.75 General: Alert, Oriented x3, Cooperative, No apparent distress, HEENT: Atraumatic, PERRLA, EOMI, Normocephalic Oral: Dry Mucosa Neck: Supple, No JVD, Negative Carotid Bruits, Negative Hepatojugular Reflux, No Nodes Lungs: Clear to auscultation, Normal air movement, No rhonchi, No wheeze Cardiovascular: Regular rate, Regular Rhythm, Normal S1, Normal S2, No murmurs Abdomen: Bowel Sounds Present, Soft, Non Tender, Non-Distended, No Hepato-splenomegaly Extremities: No clubbing, No cyanosis, No edema, Capillary Refill Less than 3 Seconds Skin: - - papular erythematous rash over body has improved significantly. Musculoskeletal: No Tenderness to Palpation of Joints or Extremities Lymphatic: No Cervical, Supraclavicular, or Inguinal Adenopathy Neurological: Cranial nerves II-XII grossly intact Psych/Mental Status: Normal Affect, Appropriate, Alert and oriented to time, place, person, mood and affect Microbiology Past 72 Hours 06/05/19 13:13 Mucosa - Nasopharyngeal Respiratory Panel (PCR) - Final 06/05/19 08:33 Mucosa - Nasopharyngeal Influenza Types A,B Direct FA (DEYSI) - Final Laboratory Results 06/05/19 18:18: S.aureus Protein A PCR NEGATIVE, MRSA (PCR) Negative 06/06/19 05:50: WBC 18.1 H, RBC 3.81 L, Hgb 12.0 L, Hct 36.3 L, MCV 95.3 H, MCH 31.5, MCHC 33.1, RDW Std Deviation 46.5 H, RDW Coeff of Tom 13.3, Plt Count 241, MPV 10.1, Immature Gran % (Auto) 3.500 H, Neut % (Auto) 87.3 H, Lymph % (Auto) 5.0 L, [place] % (Auto) 3.7, Eos % (Auto) 0.2, Baso % (Auto) 0.3, Absolute Neuts (auto) 15.8 H, Absolute Lymphs (auto) 0.91, Nucleated RBC % 0 06/06/19 05:50: Sodium 135 L, Potassium 4.4, Chloride 104, Carbon Dioxide 26.0, Anion Gap 5, BUN 18, Creatinine 0.76, Estim Creat Clear Calc 123.85, Est GFR (MDRD) Af Amer 139, Est GFR (MDRD) Non-Af 115, BUN/Creatinine Ratio 23.5 H, Glucose 134 H, Calcium 7.8 L, Total Bilirubin 0.80, AST 27, ALT 84 H, Alkaline Phosphatase 112, Total Protein 5.5 L, Albumin 2.1 L, Globulin 3.4, Albumin/Globulin Ratio 0.6 L Diagnostic Data Brain CT 06/05/19 08:13 IMPRESSION: Normal unenhanced CT scan of the brain. Electronically Signed: Philip Carrion MD at 9:09 EST , Service support , Chest X-Ray 06/05/19 08:13 IMPRESSION: Normal x-ray examination of the chest. Electronically Signed: Philip Carrion MD at 8:46 EST , Service support , Liver Ultrasound 06/05/19 11:08 IMPRESSION: Heterogeneous echotexture within the liver, there are 2 hepatic cysts, no suspicious solid lesion Gallbladder polyp and ring down artifact from the anterior wall of the gallbladder suggestive of adenomyomatosis. No sonographic evidence of cholecystitis Electronically Signed: Philip Carrion MD at 16:44 EST , Service support , Current Medications Acetaminophen (Tylenol) 650 mg PO Q6H PRN PRN PRN Reason: Pain Score 1-3/Temp > 100.7 F Last Admin: 06/06/19 03:01 Dose: 650 mg Documented by: Citalopram Hydrobromide (Celexa) 20 mg PO DAILY@2200 [facility] Last Admin: 06/05/19 21:04 Dose: 20 mg Documented by: Dextrose (D50w Syringe) 0 gm IV X1 PRN; Protocol PRN Reason: Hypoglycemia Enoxaparin Sodium (Lovenox) 40 mg SC DAILY [facility] Last Admin: 06/06/19 07:44 Dose: 40 mg Documented by: Glucagon () 1 mg IM .X1 PRN PRN Reason: Hypoglycemia Sodium Chloride () 250 mls @ 15 mls/hr IV .[id number] PRN PRN Reason: Saline Flush Last Infusion: 06/06/19 05:23 Dose: 0 mls/hr Documented by: Sodium Chloride () 250 mls @ 15 mls/hr IV .[id number] PRN PRN Reason: Additional IVPB Infusion Piperacillin Sod/Tazobactam (Sod 3.375 gm/ Sodium Chloride) 50 mls @ 12.5 mls/hr IV Q8 [facility] Last Infusion: 06/06/19 09:25 Dose: Infused Documented by: Ketorolac Tromethamine (Toradol) 30 mg IV Q6H PRN PRN PRN Reason: HEADACHE Stop: 06/11/19 09:39 Last Admin: 06/06/19 09:53 Dose: 30 mg Documented by: Lisinopril (Zestril) 20 mg PO DAILY [facility] Last Admin: 06/06/19 07:44 Dose: 20 mg Documented by: Lorazepam (Ativan) 1 mg PO QHS PRN PRN Reason: SLEEP Last Admin: 06/05/19 21:05 Dose: 1 mg Documented by: Methylprednisolone (Solu-Medrol) 40 mg IV Q8 DIDI Last Admin: 06/06/19 05:23 Dose: 40 mg Documented by: Multi-Ingredient Cream (Eucerin) 1 applic TOPICAL BID PRN PRN; Protocol PRN Reason: DRY SKIN Ondansetron HCl (Zofran) 4 mg IV Q8H PRN PRN PRN Reason: NAUSEA/VOMITING Sodium Chloride () 10 - 40 ml IV UD PRN PRN Reason: SALINE FLUSH Last Admin: 06/06/19 05:23 Dose: 10 ml Documented by: STROKE Vital Signs/Narrative: Vital Signs Temp Pulse Resp BP Pulse Ox 06/06/19 11:36 65 06/06/19 11:33 97.7 F L 68 16 110/75 97 Medical Necessity - Tobacco Use Smoking Status: Former smoker Assessment/Plan All Active Problems Fever (Acute) Head ache (Acute) Brain metastases (Acute) Drug rash (Acute) Abnormal liver function tests (Acute) 49 y/o admitted with a complaint of fever, headache and rash. 1. Diffuse erythematous rash, due to probable ipilimumab toxicity erythema and rash have improved markedly. continue IV solumedrol and IV fluid resuscitation Eucedrin cream to be applied topically prn. 2. Sepsis SIRS criteria now 1/4- leucocytosis on IV vancomycin and zosyn. blood and urine cultures are pending. UA was positive for bacteria 1+. continue antibiotics for now until his blood cultures are negative. 3. Severe headache likely due to exacerbation of cluster headache Patient had an MRI was informed yesterday by his oncologist that he had brain metastasis; per oncology, headache unlikely to be due to brain mets CT of the brain done during this admission was negative. he does have a history of cluster headaches. give sumatriptan x 1 again; give IV toradol 30mg q6prn and high flow oxygen by nonrebreather mask at 6-12L to help with cluster headache. on IV solumedrol. 4. Transaminitis Resolving. Liver enzymes are trending down whilst on Solu-Medrol. Globin is down to 0.8 from 2.4 on admission. AST is down to 27 from 159 and ALT is down to 84 from 151. ALP is down to 112 from 180 on admission. Lipase was not elevated. Liver ultrasound done showed heterogeneous echotexture within the liver with 2 hepatic cysts, and no suspicious solid lesion; gallbladder polyp and ringdown artifact from the anterior wall of the gallbladder suggestive of adenomyomatosis with no sonographic evidence of cholecystitis. Continue hydrating with IV fluids and trend liver enzymes. 5. Hypertension: on lisinopril. controlled. 6. Depression: On Celexa Prophylaxis: Lovenox Code status: DNRCCA Code Visit Inpatient E&M: 62768 Subs Hosp L2
[2019-06-06] MEDS: Ondansetron 4 MG/2 ML Vial IV (19:39)
[2019-06-06] MEDS: LORazepam 1 MG Tablet PO (22:06)
[2019-06-06] MEDS: Citalopram 20 MG Tablet PO (22:06)
[2019-06-07] MEDS: Ketorolac 30 MG/ML Syringe IV (02:29)
[2019-06-07 02:31] VITALS: BP 129/72; PULSE 72; RESP 16; TEMP 36.4; O2SAT 97
[2019-06-07 03:00] VITALS: PULSE 60
[2019-06-07 06:59] LABS: Hematocrit 34.1 % (40-54); Hemoglobin 11.4 g/dL (13.0-16.5); Mean Corp Hgb Conc 33.4 g/dL (32-36); Mean Corpuscular Hgb 31.4 pg (27.0-32.0); Mean Corpuscular Volume 93.9 fL (80-94); Mean Platelet Vol. 10.3 fl (6.2-12.0); POSITIVE COUNT YES; POSITIVE MORPHOLOGY YES; Platelet Count 256 K/mm3 (150-450); RBC Distribution Width CV 13.1 % (11.6-14.6); RBC Distribution Width SD 45.4 fl (35.1-43.9); Red Blood Count 3.63 M/mm3 (4.6-6.2); White Blood Count 20.2 K/mm3 (4.4-11.0)
[2019-06-07 07:16] LABS: ALB/GLOB Ratio 0.7 RATIO (0.9-2.4); AST(SGOT) 18 U/L (15-37); Alanine Aminotransfer ALT/SGPT 67 U/L (16-61); Albumin, Serum 2.1 g/dL (3.2-5.0); Alkaline Phosphatase 104 U/L (45-117); Anion Gap 5 (5-15); BUN 20 mg/dL (7-18); BUN/Creat Ratio 26.1 RATIO (10-20); Calcium,Total 8.1 mg/dL (8.5-10.1); Chloride 104 mmol/L (98-107); Creatinine, Serum 0.76 mg/dL (0.70-1.30); EST Glomerular Filtration Rate 115 mL/min (>60); Est Glom Filt Rate - Afr Amer 139 mL/min (>60); Estimated Creatinine Clearance 123.85 ml/min; Globulin 3.2 g/dL (2.2-4.2); Glucose 135 mg/dL (74-106); Potassium 4.5 mmol/L (3.5-5.1); Protein, Total 5.3 g/dL (6.4-8.2); Sodium Level 135 mmol/L (136-145)
[2019-06-07 07:25] LABS: Differential Indicated MANUAL DIFF
[2019-06-07 07:30] LABS: Thyroid Stim Hormone (TSH) 0.73 uIU/mL (0.358-3.74)
[2019-06-07 07:43] LABS: Erythrocyte Sedimentation Rate 18 mm/hr (0-20)
[2019-06-07 07:54] VITALS: PULSE 66
[2019-06-07 08:05] VITALS: O2SAT 96
[2019-06-07 08:16] LABS: Lymphocyte 5 % (19-41); Monocyte 4 % (0-10); Neutrophil-Segmented 91 % (47-70); Platelet Estimate ADEQUATE (ADEQ); Total Cells Counted 100 (MANUAL DIFF)
[2019-06-07 08:17] LABS: Red Cell Morphology NORM C+C NORMAL (NORM C&C)
[2019-06-07 08:18] LABS: Absolute Lymphocyte Count 1.01 X10^3/uL (0.83-4.51); Absolute Neutrophil Count 18.4 X10^3/uL (2.0-7.7); Lymphocyte # 1.01 X10^3/ul (4.0)
--- NOTE | 2019-06-07 08:22 | PCM.PN.BLA ---
Progress Note Oncology progress note: Patient is feeling much better today. Denies headaches, nausea, vomiting or diarrhea. No cough, congestion, chest pain or shortness of breath. He has been afebrile since his admission. Blood culture and viral panel are all negative. Vital Signs - 24 hr Temp Pulse Resp BP Pulse Ox 06/07/19 08:05 96 06/07/19 07:54 66 06/07/19 03:00 60 06/07/19 02:31 97.6 F L 72 16 129/72 H 97 06/06/19 20:34 97.5 F L 68 16 140/76 H 98 06/06/19 20:13 149 H 06/06/19 19:00 66 06/06/19 15:27 79 06/06/19 14:39 97.9 F 69 16 127/71 H 96 06/06/19 11:36 65 06/06/19 11:33 97.7 F L 68 16 110/75 97 Microbiology Past 72 Hours 06/05/19 09:37 Blood Culture - Preliminary Blood Culture (Wb) - Venous No growth in 48 hours. 06/05/19 08:25 Blood Culture - Preliminary Blood Culture (Wb) - Venous No growth in 48 hours. 06/05/19 13:13 Respiratory Panel (PCR) - Final Mucosa - Nasopharyngeal 06/05/19 08:33 Influenza Types A,B Direct FA (DEYSI) - Final Mucosa - Nasopharyngeal Laboratory Tests Past 24 Hrs 06/07/19 06/07/19 06/07/19 06:25 06:25 06:25 WBC 20.2 H RBC 3.63 L Hgb 11.4 L Hct 34.1 L MCV 93.9 MCH 31.4 MCHC 33.4 RDW Std Deviation 45.4 H RDW Coeff of Tom 13.1 Plt Count 256 MPV 10.3 Neut % (Auto) Not Reportable Absolute Neuts (auto) 18.4 H Absolute Lymphs (auto) 1.01 Total Counted 100 Neutrophils % (Manual) 91 H Lymphocytes % (Manual) 5 L Monocytes % (Manual) 4 Diff Path Review May foll Platelet Estimate ADEQUATE RBC Morphology NORM C+C ESR 18 Sodium 135 L Potassium 4.5 Chloride 104 Carbon Dioxide 26.0 Anion Gap 5 BUN 20 H Creatinine 0.76 Estim Creat Clear Calc 123.85 Est GFR (MDRD) Af Amer 139 Est GFR (MDRD) Non-Af 115 BUN/Creatinine Ratio 26.1 H Glucose 135 H Calcium 8.1 L Total Bilirubin 0.60 AST 18 ALT 67 H Alkaline Phosphatase 104 Total Protein 5.3 L Albumin 2.1 L Globulin 3.2 Albumin/Globulin Ratio 0.7 L TSH 06/07/19 06:25 WBC RBC Hgb Hct MCV MCH MCHC RDW Std Deviation RDW Coeff of Tom Plt Count MPV Neut % (Auto) Absolute Neuts (auto) Absolute Lymphs (auto) Total Counted Neutrophils % (Manual) Lymphocytes % (Manual) Monocytes % (Manual) Diff Path Review Platelet Estimate RBC Morphology ESR Sodium Potassium Chloride Carbon Dioxide Anion Gap BUN Creatinine Estim Creat Clear Calc Est GFR (MDRD) Af Amer Est GFR (MDRD) Non-Af BUN/Creatinine Ratio Glucose Calcium Total Bilirubin AST ALT Alkaline Phosphatase Total Protein Albumin Globulin Albumin/Globulin Ratio TSH 0.73 ASSESSMENT: Consideration of symptoms related to immunotherapy treatment including fever, rash, abnormal liver function and diarrhea. -Resolved on Solu-Medrol. 1) Fever (resolved) Assessment: - etiology could be consistent with infection, or drug fever Plan: -Blood cultures pending; respiratory panel; MRSA screen were negative -Discontinue antibiotics today. blood cultures are negative. 2) cluster headaches Assessment: -Possibly exacerbated by fever and immunotherapy -MRI brain showed brain metastasis without significant edema; no evidence of leptomeningeal disease Plan: - Zofran or Compazine as needed for nausea 3) rash Assessment: -Typical drug rash. Plan: -Continue prednisone 80mg once daily until he see Dr. Crawford this week. -Eucerin topical twice daily as indicated. 4) abnormal liver functions Assessment: -History of liver mets but sudden increase may be secondary to immunotherapy; -Improving on Medrol Plan: -Continue prednisone -Monitor LFT and lipase next week 5) malignant melanoma with TRAVERTINE INSTALLER metastases Assessment: -Neurologically stable, no evidence of leptomeningeal disease -Headaches are resolved. Plan: -Refer to [facility] next week for gamma knife therapy for brain metastasis. Discharge home this morning follow-up with Dr. Crawford later this week. Arrange gamma knife therapy radiation oncology and neurosurgery this week at the [facility]. cc: Dr. Rinku Crawford; Dr. Isa Cole; Dr. Wilfredo Ellis STROKE Vital Signs/Narrative: Vital Signs Pulse Pulse Ox 06/07/19 08:05 96 01/13/20 07:54 66
--- NOTE | 2019-06-07 09:15 | DCINST_ITS ---
- Discharge Diagnoses Current Active Problems: Current Active and Chronic Problems Fever (Acute) possible drug-induced vs. infection Head ache (Acute) history of migraine 15 years ago Malignant melanoma (Chronic) Brain metastases (Acute) Drug rash (Acute) Bactrim versus immunotherapy related Abnormal liver function tests (Acute) Liver metastasis vs immunotherapy related You will use the following diet at home:: Cardiac Your food should be the consistency of: Regular Discharge Activity: May Not Drive Weight Bearing Status: Weight bearing as tolerated Call your doctor if you observe: Fever of 101 or Higher, Numbness or Tingling, Change in Color, Inability to urinate, Inability to have a bowel movement, Shortness of breath, Dizziness, Fainting spells, Swelling in the ankles, Chest pain, Prolonged hiccoughing, Increased palpitations (irregular heartbeat) Additional Instructions: Need referal from Dr Crawford to [facility] for brain mets for [place] as outpatient Allergies/Adverse Reactions: Allergies sulfamethoxazole [From Bactrim] Allergy (Verified 06/05/19 08:00) Rash trimethoprim [From Bactrim] Allergy (Verified 06/05/19 08:00) Rash Medications to take at Discharge Lisinopril [Zestril] 20 mg PO DAILY 08/20/16 Citalopram [Celexa] 20 mg PO DAILY 06/05/19 Lorazepam 1 mg PO QHS PRN 06/05/19 Opdivo IV 06/05/19 Yervoy IV 06/05/19 Prednisone 80 mg PO DAILY 28 Days tab 06/07/19 The following prescriptions were given: Prednisone 80 mg PO DAILY 28 Days tab Prescription Printed Primary Care Physician: Wilfredo Ellis MD [Primary Care Provider] - Please follow up with your Primary Care Physician in: in 2 week Test Results: Test results from this visit will be discussed in further detail at your follow- up appointment, if applicable. Please Follow Up With: Rinku Crawford, DO When: in 1 week
--- NOTE | 2019-06-07 09:18 | DS.PCM_ITS ---
Discharge Date and Diagnosis Date of Admission: 06/05/19 Date of Discharge: 06/07/19 - Primary Discharge Diagnosis Active and Suspected Problems Fever (Acute) possible drug-induced vs. infection Head ache (Acute) history of migraine 15 years ago Brain metastases (Acute) Drug rash (Acute) Bactrim versus immunotherapy related Abnormal liver function tests (Acute) Liver metastasis vs immunotherapy related - Secondary Discharge Diagnosis Chronic Problems Malignant melanoma (Chronic) Hospital Course and Treatment Summary of Care Provided: The patient is a 49 year old M admitted with a complaint of fever, headache and rash. Patient states he took Bactrim who he was told not to take it by mistake because of allergy and he got rash because of that. 1. Diffuse erythematous rash, due to probable ipilimumab/Bactrim: * erythema and rash have improved markedly. * continue IV solumedrol and IV fluid resuscitation * Eucedrin cream to be applied topically prn. * Patient is discharged on prednisone 80 mg daily, total 1 week supply but advised to follow-up Dr. Crawford in 2 to 3 days to taper the dose. 2. Sepsis * SIRS criteria now 1/4- leucocytosis * Patient initially was put on vancomycin and Zosyn but antibiotics were discontinued when patient did not had fever chills and cultures were negative. Aspiratory panel negative blood culture negative for more than 48 hours. Urine culture negative. 3. Severe headache likely due to exacerbation of cluster headache * Patient had an MRI which had brain metastasis; per oncology * CT of the brain done during this admission was negative. * he does have a history of cluster headaches. * Patient had sumatriptan x 1 again; give IV toradol 30mg q6prn and high flow oxygen by nonrebreather mask at 6-12L to help with cluster headache. * on IV solumedrol. * Resolved 4. Transaminitis * Liver enzymes are trending down. Last ALT/AST 67/18. Alkaline phosphatase normal. Total bili 0.6. * Lipase was not elevated. * Liver ultrasound done showed heterogeneous echotexture within the liver with 2 hepatic cysts, and no suspicious solid lesion; gallbladder polyp and ringdown artifact from the anterior wall of the gallbladder suggestive of adenomyomatosis with no sonographic evidence of cholecystitis. * Patient had IV fluid hydration. 5. Hypertension: on lisinopril. controlled. 6. Depression: On Celexa Prophylaxis: Lovenox Code status: DNCA Discharge medication reconciliation done. Discharge follow-up instructions completed. Discharge process discussed with the patient and all questions were answered to patient's satisfaction. Patient is discharged home on prednisone to be followed by oncologist Dr. Pa. Patient was also told that he will need referral to [facility] for gamma knife surgery for brain mets by Dr. Crawford. Total time spent, exact 35 minutes on discharge meds reconciliation, examination, review of imaging and blood test and discussion with the patient on follow-up instructions. Subjective: No fever. Hemodynamically stable. Respiratory panel negative. Blood culture negative for more than 48 hours. Rash has almost resolved. - Physical Exam Vitals/I&O's: Vital Signs Temp Pulse Resp BP Pulse Ox 97.6 F L 66 16 129/72 H 96 06/07/19 02:31 06/07/19 07:54 06/07/19 02:31 06/07/19 02:31 06/07/19 08:05 Oxygen Flow Rate (L/min) 6 Oxygen Delivery Method Room Air Weight: 209 lb 3.499 oz Body Mass Index (BMI) 29.2 Intake and Output for Last 24 Hours 06/05/19 06/06/19 06/07/19 23:59 23:59 23:59 Intake Total 3038.0 / 3388.0 3619.25 / 3619.25 594.75 / 594.75 Output Total 300 / 475 825 / 825 1350 / 1350 Balance 2738.0 / 2913.0 2794.25 / 2794.25 -755.25 / -755.25 General: Alert, Oriented x3, Cooperative HEENT: Atraumatic, PERRLA, EOMI, Normocephalic Neck: Supple, No JVD, Negative Carotid Bruits Lungs: Clear to auscultation, Normal air movement, No rhonchi, No wheeze, No rales Cardiovascular: Regular rate, Regular Rhythm, Normal S1, Normal S2, No murmurs Abdomen: Bowel Sounds Present, Soft, Non Tender, Non-Distended Extremities: No edema, Capillary Refill Less than 3 Seconds Skin: Rash Present - Subtle maculopapular rash over upper extremity and lower legs. Musculoskeletal: No Tenderness to Palpation of Joints or Extremities Neurological: Cranial nerves II-XII grossly intact, Deep Tendon Reflexes 2+/4 and Symmetrical, Neuro grossly intact Psych/Mental Status: Normal Affect, Appropriate Microbiology Past 72 Hours 06/05/19 09:37 Blood Culture (Wb) - Venous Blood Culture - Preliminary No growth in 48 hours. 06/05/19 08:25 Blood Culture (Wb) - Venous Blood Culture - Preliminary No growth in 48 hours. 06/05/19 13:13 Mucosa - Nasopharyngeal Respiratory Panel (PCR) - Final 06/05/19 08:33 Mucosa - Nasopharyngeal Influenza Types A,B Direct FA (DEYSI) - Final Laboratory Results 06/07/19 06:25: WBC 20.2 H, RBC 3.63 L, Hgb 11.4 L, Hct 34.1 L, MCV 93.9, MCH 31.4, MCHC 33.4, RDW Std Deviation 45.4 H, RDW Coeff of Tom 13.1, Plt Count 256, MPV 10.3, Neut % (Auto) Not Reportable, Absolute Neuts (auto) 18.4 H, Absolute Lymphs (auto) 1.01, Total Counted 100, Neutrophils % (Manual) 91 H, Lymphocytes % (Manual) 5 L, Monocytes % (Manual) 4, Diff Path Review September, Platelet Estimate ADEQUATE, RBC Morphology NORM C+C 06/07/19 06:25: Sodium 135 L, Potassium 4.5, Chloride 104, Carbon Dioxide 26.0, Anion Gap 5, BUN 20 H, Creatinine 0.76, Estim Creat Clear Calc 123.85, Est GFR (MDRD) Af Amer 139, Est GFR (MDRD) Non-Af 115, BUN/Creatinine Ratio 26.1 H, Glucose 135 H, Calcium 8.1 L, Total Bilirubin 0.60, AST 18, ALT 67 H, Alkaline Phosphatase 104, Total Protein 5.3 L, Albumin 2.1 L, Globulin 3.2, Albumin/Globulin Ratio 0.7 L 06/07/19 06:25: ESR 18 06/07/19 06:25: TSH 0.73 Current Medications Acetaminophen (Tylenol) 650 mg PO Q6H PRN PRN PRN Reason: Pain Score 1-3/Temp > 100.7 F Last Admin: 06/06/19 03:01 Dose: 650 mg Documented by: Citalopram Hydrobromide (Celexa) 20 mg PO DAILY@2200 DIDI Last Admin: 06/06/19 22:06 Dose: 20 mg Documented by: Dextrose (D50w Syringe) 0 gm IV X1 PRN; Protocol PRN Reason: Hypoglycemia Enoxaparin Sodium (Lovenox) 40 mg SC DAILY [facility] Last Admin: 06/06/19 07:44 Dose: 40 mg Documented by: Glucagon () 1 mg IM .X1 PRN PRN Reason: Hypoglycemia Sodium Chloride () 250 mls @ 15 mls/hr IV .[id number] PRN PRN Reason: Saline Flush Last Infusion: 06/07/19 05:06 Dose: 0 mls/hr Documented by: Sodium Chloride () 250 mls @ 15 mls/hr IV .[id number] PRN PRN Reason: Additional IVPB Infusion Ketorolac Tromethamine (Toradol) 30 mg IV Q6H PRN PRN PRN Reason: HEADACHE Stop: 06/11/19 09:39 Last Admin: 06/07/19 02:29 Dose: 30 mg Documented by: Lisinopril (Zestril) 20 mg PO DAILY [facility] Last Admin: 06/06/19 07:44 Dose: 20 mg Documented by: Lorazepam (Ativan) 1 mg PO QHS PRN PRN Reason: SLEEP Last Admin: 06/06/19 22:06 Dose: 1 mg Documented by: Methylprednisolone (Solu-Medrol) 40 mg IV Q8 [facility] Last Admin: 06/07/19 05:05 Dose: 40 mg Documented by: Multi-Ingredient Cream (Eucerin) 1 applic TOPICAL BID PRN PRN; Protocol PRN Reason: DRY SKIN Ondansetron HCl (Zofran) 4 mg IV Q8H PRN PRN PRN Reason: NAUSEA/VOMITING Last Admin: 06/06/19 19:39 Dose: 4 mg Documented by: Sodium Chloride () 10 - 40 ml IV UD PRN PRN Reason: SALINE FLUSH Last Admin: 06/06/19 05:23 Dose: 10 ml Documented by: Discharge Activity: May Not Drive Weight Bearing Status: Weight bearing as tolerated Call your doctor if you observe: Fever of 101 or Higher, Numbness or Tingling, Change in Color, Inability to urinate, Inability to have a bowel movement, Shortness of breath, Dizziness, Fainting spells, Swelling in the ankles, Chest pain, Prolonged hiccoughing, Increased palpitations (irregular heartbeat) Home Medications: Medications to take at Discharge Lisinopril [Zestril] 20 mg PO DAILY 08/20/16 Citalopram [Celexa] 20 mg PO DAILY 06/05/19 Lorazepam 1 mg PO QHS PRN 06/05/19 Opdivo IV 06/05/19 Yervoy IV 06/05/19 Prednisone 80 mg PO DAILY 28 Days tab 06/07/19 Following Prescrptions Were Given to Patient: Prednisone 80 mg PO DAILY 28 Days tab Prescription Printed Primary Care Physician: Wilfredo Ellis MD [Primary Care Provider] - Please follow up with your Primary Care Physician in: in 2 week Please Follow Up With: Rinku Crawford DO When: in 1 week Medical Necessity - Tobacco Use Smoking Status: Former smoker Meaningful Use Info Meaningful Use Diagnoses (Choose all that apply): None applicable Code Visit Inpatient E&M: 51341 Disch Hosp
--- NOTE | 2019-06-07 09:38 | CASEMGMT ---
RN CM Assessment Introduced role of RN CM to patient, sitting in chair on side of bed.? Patient is alert, oriented and able?to participate in RN CM Assessment. ?Care providers, pharmacy, and demographics verified. Presentation: Fever, WALL, Diffuse Rash. Dz with invasive melanoma in May 2016, recently started immunotherapy tx for Melanoma May 28, 2019. Admit Dx: Sepsis, Rash Re-Admit: No Barriers/Issues: None PCP: Wilfredo Ellis Specialists: Onc- Dr Crawford Preferred Pharmacy: Normally [facility], [place], however going to get DC meds filled at [facility] this admission. Insurance: MMO Rx Benefit: Yes? ?LNOK: Nenita Mayer LW/HPOA: States just completed both on friday with district superintendent but it has not been recorded yet Living Arrangements:? Lives with in a H, no steps to enter ADL?s: Independent with ambulation and ADLs Transportation: Drives, no issues DME: None HHC: Past, cannot recall agency SNF: None Goal: Home and does not think will have any needs. Denies any issues, concerns, needs or questions with DC planning at this time. Aware CM remains available for any emerging needs. DC PLAN: Home with no anticipated needs identified at this time. CAYLA Basurto
--- NOTE | 2019-06-07 09:44 | PHA.DC.MC ---
Pharmacy Service has performed discharge medication reconciliation and counseling for this patient. 1. PREDNISONE 80MG PO DAILY X 7 DAYS, THEN DR. GENAO TO TAPER DOWN The patient's discharge medication list was reviewed for discrepancies and discrepancies were resolved. Home Medications Lisinopril [Zestril] 20 mg PO DAILY 08/20/16 Citalopram [Celexa] 20 mg PO DAILY 06/05/19 Lorazepam 1 mg PO QHS PRN 06/05/19 Opdivo IV 06/05/19 Yervoy IV 06/05/19 Prednisone 80 mg PO DAILY 28 Days tab 06/07/19 The patient was counseled on the following discharge medications and changes in medications for homegoing were reviewed. The Reason for Use, instructions for use, and potential side effects were reviewed for all new medications. The patient's questions regarding all of their medications were answered. The patient was able to verbally demonstrate an understanding of their discharge medications.
[2019-06-07 10:24] VITALS: BP 120/72; PULSE 68; RESP 18; TEMP 36.7; O2SAT 98
[2019-06-08 09:50] LABS: Pathologist Review Reviewed
== END 2019-06-07 10:23 | disposition home or self-care (01) | DRG 607 ==
LOC: ED 08:23 → PCU 09:44
PROVIDERS: Internal Medicine Hematology & Oncology; Admitting Provider Student in an Organized Health Care Education/Training Program; Emergency Provider Emergency Medicine; Family Provider Family Medicine; PCP Family Medicine; Referring Provider Student in an Organized Health Care Education/Training Program; Visit Provider Internal Medicine
DX: L27.0 Generalized skin eruption due to drugs and medicaments taken internally (principal); C79.31 Secondary malignant neoplasm of brain; C78.7 Secondary malignant neoplasm of liver and intrahepatic bile duct; C78.02 Secondary malignant neoplasm of left lung; C78.01 Secondary malignant neoplasm of right lung; C78.89 Secondary malignant neoplasm of other digestive organs; C77.9 Secondary and unspecified malignant neoplasm of lymph node, unspecified; C78.6 Secondary malignant neoplasm of retroperitoneum and peritoneum; T36.8X5A Adverse effect of other systemic antibiotics, initial encounter; T50.995A Adverse effect of other drugs, medicaments and biological substances, initial encounter; Y92.9 Unspecified place or not applicable; R50.9 Fever, unspecified; G44.011 Episodic cluster headache, intractable; C43.9 Malignant melanoma of skin, unspecified; I10 Essential (primary) hypertension; F32.9 Major depressive disorder, single episode, unspecified; Z79.899 Other long term (current) drug therapy; Z88.1 Allergy status to other antibiotic agents; Z88.2 Allergy status to sulfonamides; Z87.891 Personal history of nicotine dependence
CPT/HCPCS: 36415; 70450; 71045; 76705; 80053; 81001; 83605; 83690; 84443; 85025; 85652; 87040; 87086; 87633; 87640; 87804; 94762; 97161; 97165; 97802; 99284; J7030; J7040; J7050; A4216; J2405; J3030